=== PATIENT | female | born 2005 ===

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

== ENCOUNTER 2023-05-14 21:44 | Emergency (ER) | payer OTHER, SELFPAY ==
[2023-05-14 21:51] VITALS: BP 103/63; PULSE 72; RESP 18; TEMP 37.3; O2SAT 99; BMI 37.8
[2023-05-14 23:43] VITALS: BP 121/60; PULSE 65; RESP 18; TEMP 36.9; O2SAT 100
--- NOTE | 2023-05-14 23:44 | MHC.EDTECH ---
Hourly rounds and vitals completed, this tech will set-up for an I&D per the request of .
--- NOTE | 2023-05-15 00:05 | ED_ITS ---
HPI - General Adult General Chief complaint: General Medical Stated complaint: Abscess Time Seen by Provider: 05/14/23 23:23 Source: patient and family Mode of arrival: ambulatory Limitations: no limitations History of Present Illness HPI narrative: 17 yo female no sig PMH here with 1 week of R upper axilla abscess no prior hx of MRSA no fevers, vomiting. Thought maybe it was ingrown hair complaint: abscess Onset (ago): week(s) (1) Location: right and upper extremity (axilla) Radiation: non-radiation Severity: moderate Quality: aching Pain Consistency: intermittent Relieving factors: none Exacerbating factors: other (palpation) Associated symptoms: denies other symptoms Treatments prior to arrival: none Related Data Previous Rx's Medication Instructions Recorded amoxicillin 500 mg capsule 500 mg PO BID #20 caps 12/13/22 doxycycline monohydrate 100 mg 100 mg PO BID #13 caps 05/15/23 capsule ondansetron 4 mg disintegrating 4 mg PO Q8H PRN nausea and 05/15/23 tablet vomiting #20 tabs Allergies Allergy/AdvReac Type Severity Reaction Status Date / Time No Known Allergies Allergy Unverified 05/19/20 17:10 Review of Systems Review of Systems: Constitutional : No Fever, No Chills, Cardiovascular : No Chest Pain, No SOB Respiratory : No Dyspnea Gastrointestinal : No abdominal pain Musculoskeletal : No Joint Swelling Skin : No rash, positive abscess Neuro : No Weakness, No Numbness PMFSH Past Medical History Attestation statement: The following information was validated with the patient. Medical History No pertinent past medical history Social History Social History (Updated 05/15/23 @ 00:11 by Natalie Wright DO) Patient Tobacco Use Status: Never used Tobacco Physical Exam ED Vital Signs: Vital Signs - 24 hr 05/14/23 21:51 05/14/23 23:43 Temperature 99.2 F 98.5 F Pulse Rate 72 65 Respiratory Rate 18 18 Blood Pressure 103/63 121/60 Pulse Oximetry 99 100 Oxygen Delivery Method Room Air Room Air BMI result Body Mass Index 37.8 Appearance: Alert. Oriented X3. No acute distress. Eyes: Pupils equal, round and reactive to light. ENT: Pharynx normal. Neck: Normal inspection. Neck supple. CVS: Normal heart rate and rhythm. Pulses normal. Respiratory: No respiratory distress. Breath sounds normal. Abdomen: Soft and nontender. Skin: Skin warm and dry. Normal skin color. Normal skin turgor. Extremities: No lower extremity edema. R axilla golf ball size abscess fluctuant and almost to a point - distal NV intact, no overlying cellulitis Neuro: Oriented X 3. No motor deficit. No sensory deficit. Procedures Abscess I/D Site: upper extremity (axilla) Side (if applicable): right Local Anesthetic: lidocaine 1% Amount of anesthesia used (mL): 2 Technique: incised with blade Amount of fluid expressed (mL): 3 Sent for culture/gram staining?: No Irrigation: Yes Packing used?: iodoform Medical Decision Making Medical Decision Making MDM Narrative: 17 yo female with R axilla abscess no hx of MRSA No systemic symptoms NV intact RUE - at this time will I+D and start on doxycycline patient is not toxic. Differential Diagnosis Differential Diagnoses: The differential diagnosis associated with the presentation includes abscess, cellulitis, MRSA Admission/Observation Consideration of admission/observation: Escalation of care including admiss ion/observation considered not toxic, no sig signs of cellulitis stable for outpatient care Independent Historian Clinical information obtained from an independent historian. History obtained from or confirmed by: Parent Prescription Management I considered prescription management with: Antibiotic Discharge Plan Discharge Clinical Impression: Abscess Patient Disposition: Home, Self-Care Instructions: Abscess (ED), Incision and Drainage (ED) Additional Instructions: okay to shower but no pool/ocean/pond take antibiotic with full meal and glass of water - can cause sun sensitivity and rash/sunburn packing comes out in 2 days - if it falls out on its own that is okay, return for fevers, worsening swelling, pain, vomiting or any other concerns such as redness that extends beyond the redness Prescriptions: New doxycycline monohydrate 100 mg capsule 100 mg PO BID Qty: 13 0RF ondansetron 4 mg tablet,disintegrating 4 mg PO Q8H PRN (Reason: nausea and vomiting) Qty: 20 0RF No Action amoxicillin 500 mg capsule 500 mg PO BID Qty: 20 0RF
[2023-05-15] MEDS: Ondansetron ODT 4 MG TAB.RAPDIS TRANSLINGU (00:27)
[2023-05-15] MEDS: Doxycycline Monohydrate 100 MG CAPSULE PO (00:27)
[2023-05-15] MEDS: Lidocaine HCl 1 % MPF 5 ML VIAL SUBCUT (00:28)
== END 2023-05-15 00:42 | disposition home or self-care (01) ==
PROVIDERS: Emergency Provider Emergency Medicine; PCP Pediatrics
DX: L02.411 Cutaneous abscess of right axilla (principal)
CPT/HCPCS: 10060; 99283; 99284

== ENCOUNTER 2023-06-10 12:45 | Emergency (ER) | payer OTHER, SELFPAY ==
[2023-06-10 13:37] VITALS: BP 119/60; PULSE 60; RESP 16; TEMP 36.4; O2SAT 98; BMI 33.3
--- NOTE | 2023-06-10 13:37 | ED.GENADULT ---
HPI - General Adult General Chief complaint: Skin/Abscess/Foreign Body Stated complaint: Rash Time Seen by Provider: 06/10/23 13:40 Source: patient Mode of arrival: ambulatory Limitations: no limitations History of Present Illness HPI narrative: Patient is a 17 year old assigned female at with no reported medical history presenting to the emergency department today with a rash. Patient states that she woke up this morning with a rash to her abdomen and neck. Patient denies any change in soaps or detergents. Patient denies any dizziness, lightheadedness, abdominal pain, nausea, vomiting, fever, chills, blurry vision, double vision, loss of vision, chest pain, difficulty breathing, shortness of breath, back pain, night sweats, pain with urination, increased urinary frequency, increased urinary urgency, blood in her urine or stool, syncope or a near syncopal episode, recent trauma or falls, bowel incontinence, bladder incontinence, bowel retention, bladder retention, or any other complaints at this time. Onset (ago): hour(s) Severity: mild Severity scale (1-10): 3 Relieving factors: none Exacerbating factors: none Associated symptoms: rash Treatments prior to arrival: none Related Data Previous Rx's Medication Instructions Recorded amoxicillin 500 mg capsule 500 mg PO BID #20 caps 12/13/22 doxycycline monohydrate 100 mg 100 mg PO BID #13 caps 05/15/23 capsule ondansetron 4 mg disintegrating 4 mg PO Q8H PRN nausea and 05/15/23 tablet vomiting #20 tabs prednisone 20 mg tablet 20 mg PO DAILY 7 days #7 tabs 06/10/23 Allergies Allergy/AdvReac Type Severity Reaction Status Date / Time No Known Allergies Allergy Verified 06/10/23 13:37 Review of Systems Constitutional: Constitutional: Reports no additional constitutional complaints, Denies chills, Denies fever(s) and Denies night sweats Eyes: Eyes: Reports no additional eye complaints, Denies blurry vision, Denies change in vision, Denies diplopia, Denies eye discharge, Denies loss of vision and Denies eye pain ENT: Denies dizziness Cardiovascular: Cardiovascular: Reports no additional cardiovascular complaints, Denies chest pain, Denies lightheadedness, Denies Loss of Consciousness and Denies dyspnea Respiratory: Respiratory: Reports no additional respiratory complaints and Denies dyspnea Gastrointestinal: Gastrointestinal: Reports no additional gastrointestinal complaints, Denies abdominal pain, Denies melena, Denies hematochezia, Denies change in bowel habits and Denies change in stool character Genitourinary: Genitourinary: Denies hematuria, Denies urinary frequency, Denies dysuria, Denies urinary incontinence, Denies urinary hesitancy and Denies urinary urgency Musculoskeletal: Musculoskeletal: Reports no additional musculoskeletal complaints, Denies numbness and Denies tingling Integumentary/Breasts: Skin/Breast: Reports rash Neurologic: Denies dizziness, Denies loss of vision, Denies numbness and Denies tingling Psychiatric: Psychiatric: Reports no additional psychiatric complaints Endocrine: Endocrine: Reports no additional endocrine complaints Hematologic/Lymphatic: Hematologic/Lymphatic: Reports no additional hematologic/lymphatic complaints Allergic/Immunologic: Allergic/Immunologic: Reports no additional allergic/immunologic complaints PMFSH Past Medical History Attestation statement: The following information was validated with the patient. Source: old records reviewed and nursing notes reviewed Medical History No pertinent past medical history Social History Social History Patient Tobacco Use Status: Never used Tobacco Advance Directives: No Physical Exam ED Vital Signs: Vital Signs - 24 hr 06/10/23 13:37 Temperature 97.5 F Pulse Rate 60 Respiratory Rate 16 Blood Pressure 119/60 Pulse Oximetry 98 Oxygen Delivery Method Room Air BMI result Body Mass Index 33.3 Const General: cooperative, no acute distress, alert and awake Nutritional Appearance: well nourished Orientation/consciousness: patient oriented x3 Limitations: no limitations [facility] Head: Yes normal to inspection and Yes atraumatic Ears: hearing grossly normal bilaterally and external ears normal General nose exam: Normal external nose present, no nasal discharge noted and no epistaxis Face and sinus: Yes normal facial exam, No abrasion and No laceration Mouth: Normal oral and palatal mucosa present, no drooling and no muffled voice Eyes General: appearance normal, both eyes and all related structures Periorbital: periorbital findings normal Eyelids: Yes eyelids normal Conjunctivae: conjunctivae normal Pupils: Equal, round and reactive pupils present EOM: EOMs intact bilaterally Neck Neck: Yes normal visual inspection, Yes full ROM and Yes no lymphadenopathy Chest Chest palpation & inspection: normal inspection of the chest Resp Effort & Inspection: normal respiratory effort and able to speak in complete sentences GI Inspection: Yes normal to inspection Skin Other: urticaria present to the upper chest and abdomen Neuro General: patient oriented x3 and moves all extremities Cranial nerves: Yes Equal, round and reactive pupils present Cognition (Neuro): normal cognition Motor exam (neuro): 5/5 motor strength present throughout Sensory Exam: Normal double simultaneous stimulation for sensation Coordination: [id number] test normal Extrem General: Yes normal to inspection, Yes full ROM and Yes capillary refill normal Psych Appearance: grossly normal Mental Status: mental status grossly normal Affect: normal affect Attitude: cooperative Thought process: Normal thought process present Thought content: Normal thought content present Insight: Good insight present (Psych) Medical Decision Making Medical Decision Making MDM Narrative: Patient is a 17 year old assigned female at with no reported medical history presenting to the emergency department today with a rash. Patient's physical exam was as noted in the physical exam portion of this note. I explained my physical exam findings to the patient. I answered all questions asked by the patient. I stressed the importance of the patient taking her medication as prescribed. I stressed the importance of the patient following up with her primary care provider. I stressed the importance of the patient returning to the emergency department immediately if her symptoms were to worsen or if she were to develop any dizziness, shortness of breath, difficulty breathing, chest pain, blurry vision, loss of vision, nausea, vomiting, abdominal pain, fever, chills, back pain, or any other complaints. Patient verbalized agreement and understanding with this treatment plan and discharge. Differential Diagnosis Differential Diagnoses: The differential diagnosis associated with the presentation includes Urticaria Rash Discharge Plan Discharge Clinical Impression: Acute urticaria Patient Disposition: Home, Self-Care Instructions: Urticaria (ED) Additional Instructions: Follow up with your primary care provider. Return to the emergency department immediately if your symptoms worsen or if you develop any dizziness, shortness of breath, difficulty breathing, chest pain, blurry vision, loss of vision, nausea, vomiting, abdominal pain, fever, chills, back pain, or any other complaints. Prescriptions: New prednisone 20 mg tablet 20 mg PO DAILY 7 Days Qty: 7 0RF No Action amoxicillin 500 mg capsule 500 mg PO BID Qty: 20 0RF doxycycline monohydrate 100 mg capsule 100 mg PO BID Qty: 13 0RF ondansetron 4 mg tablet,disintegrating 4 mg PO Q8H PRN (Reason: nausea and vomiting) Qty: 20 0RF Referrals: [facility] [Provider Group] (Call to establish and follow up with a primary care provider. If you already have a primary care provider, please follow up with them.) [facility] [Provider Group] (Call to establish and follow up with a primary care provider. If you already have a primary care provider, please follow up with them.) [facility] [Provider Group] (Call to establish and follow up with a primary care provider. If you already have a primary care provider, please follow up with them.) Interventions: ED Discharge Assessment Last Done: 06/10/23 13:49 Discharge Date/Time: 06/10/23 13:49 Print Language: Moldovan
== END 2023-06-10 13:49 | disposition home or self-care (01) ==
PROVIDERS: Emergency Provider Emergency Medicine; PCP Pediatrics
DX: L50.0 Allergic urticaria (principal); Z79.899 Other long term (current) drug therapy
CPT/HCPCS: 99282; 99283

== ENCOUNTER 2023-07-17 09:36 | Emergency (ER) | payer OTHER, SELFPAY ==
--- NOTE | ~2023-07-17 | XR_ITS ---
EXAMINATION: XR WRIST, RIGHT XR HAND, RIGHT CLINICAL INFORMATION: Punched wall COMPARISON: None available. TECHNIQUE: PA, lateral, and bilateral oblique views of the right wrist and hand along with a scaphoid view of the wrist. FINDINGS: RIGHT WRIST: The bones and soft tissues are normal. No fracture. Alignment is anatomic. Joint spaces are maintained. No erosions or soft tissue calcifications. RIGHT HAND: The bones and soft tissues are normal. No fracture. Alignment is anatomic. Joint spaces are maintained. No erosions or soft tissue calcifications. XR/XR hand wrist RT IMPRESSION: Normal right hand and wrist.
[2023-07-17 09:44] VITALS: BP 119/75; PULSE 110; RESP 16; TEMP 36.6; O2SAT 94; BMI 33.3
--- NOTE | 2023-07-17 09:49 | ED.EXTPRO ---
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 Admits to arguing with someone this morning causing her to punch the drywall in her room. She reports pain to 3rd-5th digits on her right hand exacerbated with movement. Denies right wrist, forearm, or elbow pain. Denies taking any medications for pain prior to arrival. Denies any other injury. Endorses marijuana use today. Denies any other illicit drug use or alcohol consumption. Related Data Previous Rx's Medication Instructions Recorded amoxicillin 500 mg capsule 500 mg PO BID #20 caps 12/13/22 doxycycline monohydrate 100 mg 100 mg PO BID #13 caps 05/15/23 capsule ondansetron 4 mg disintegrating 4 mg PO Q8H PRN nausea and 05/15/23 tablet vomiting #20 tabs prednisone 20 mg tablet 20 mg PO DAILY 7 days #7 tabs 06/10/23 Allergies Allergy/AdvReac Type Severity Reaction Status Date / Time No Known Allergies Allergy Verified 06/10/23 13:37 Review of Systems Review of Systems: Constitutional: No fever, chills, fatigue, night sweats, weight changes ENT/Mouth: No ear pain, hearing loss, nasal congestion, sinus pain, rhinorrhea, sore throat Eyes: No eye pain, swelling, redness, vision changes, discharge Cardio: No chest pain, palpitations, MALLOY, orthopnea, peripheral edema Pulm: No SOB, cough, sputum, wheezing, dyspnea, hemoptysis GI: No nausea, vomiting, hematemesis, abdominal pain, diarrhea, constipation, hematochezia, melena : No irregular bleeding, dysuria, frequency, urgency, hesitancy, hematuria, flank pain, urinary flow changes, urinary incontinence or retention MSK: No back pain, neck pain, joint pain, myalgias, +right hand pain Skin: No lesions, rashes Neuro: No weakness, numbness, paresthesias, LOC, dizziness, headache All other systems reviewed and are negative. [facility] Past Medical History Attestation statement: The following information was validated with the patient. Source: old records reviewed and nursing notes reviewed Medical History No pertinent past medical history Social History Social History Patient Tobacco Use Status: Never used Tobacco Advance Directives: No Advance Directives Information Provided: No Physical Exam Vital Signs: Vital Signs: Last Vital Signs Temp 97.8 F 07/17/23 09:44 Pulse 110 H 07/17/23 09:44 Resp 16 07/17/23 09:44 BP 119/75 07/17/23 09:44 Pulse Ox 94 07/17/23 09:44 O2 Del Method Room Air 07/17/23 09:44 BMI result Body Mass Index 33.3 Vital signs stable Const: General: cooperative, healthy appearing, comfortable, no acute distress, alert and awake Orientation/consciousness: patient oriented x3 Limitations: no limitations HEENT: Ears: hearing grossly normal bilaterally Eyes: General: appearance normal, both eyes and all related structures Conjunctivae: conjunctivae normal Sclerae: sclerae normal Pupils: Equal, round and reactive pupils present Resp: Effort & Inspection: normal respiratory effort Auscultation: clear to auscultation bilaterally Cardio: Rate: regular rate Rhythm: regular rhythm Peripheral pulses: radial pulses present Skin: Other: No overlying skin lacerations or abrasions. No FB. General skin exam: no rashes or lesions noted Neuro: General: patient oriented x3, gait normal and moves all extremities Cranial nerves: Yes CN's II-XII intact bilaterally and Yes Equal, round and reactive pupils present Extrem: Other: + full ROM intact to right wrist and elbow. Finger to thumb opposition intact. Full ROM noted to MCP, PIP and DIPs to all digits on the right hand. Tender to palpation over the 3rd, 4th, 5th MCP without palpable deformity. No snuffbox tenderness. 2+ radial pulses. General: Yes normal exam except as noted Course Course Course Narrative: X-ray right hand/wrist without acute fracture or dislocation. Given there is no snuffbox tenderness, I do not suspect scaphoid fracture. This does not require any splinting. I informed patient of her imaging results and advised her to ice the area and rest her hand for the next couple of days. Discussed return precautions. All questions answered at this time. Patient is agreeable disposition and stable for discharge. Medications Administered Discontinued Medications Generic Name Dose Route Start Last Admin Trade Name Merry PRN Reason Stop Dose Admin Acetaminophen 975 mg 07/17/23 09:54 07/17/23 10:04 Acetaminophen 325 Mg Tablet PO 07/17/23 09:55 975 mg ONCE ONE Administration Medical Decision Making Medical Decision Making MDM Narrative: 17-year-old female with no significant past medical history presents to the ED today for evaluation of a right hand pain s/p punching a wall 30 minutes UPS[employer] WELD[employer]PER[employer]. Vital signs initially notable for tachycardia likely secondary to recent argument, now normalized. Vital signs otherwise WNL. On exam there is full ROM intact to right wrist and elbow. Finger to thumb opposition intact. No overlying skin lacerations or abrasions. Full ROM noted to MCP, PIP and DIPs to all digits on the right hand. Tender to palpation over the 3rd, 4th, 5th MCP without palpable deformity. No snuffbox tenderness. 2+ radial pulses. NV intact distally. Clinical concern for fracture, dislocation, MSK sprain/strain. Lower suspicion for scaphoid fracture. No suspicion for compartment syndrome, NV compromise, or threat to limb. Plan at this time is to obtain x-ray of right hand along with pain control. Differential Diagnosis Differential Diagnoses: The differential diagnosis associated with the presentation includes As above. Admission/Observation Not indicated. Independent Interpretation I performed an independent interpretation of an: Plain X-Ray Interpretation: X-ray right hand/wrist without acute fracture or dislocation, agree with radiologist's interpretation. Radiology Impression Discussion of test interpretation with radiology: I have reviewed the radiologist's reading. Radiologist Impression: XR hand wrist RT IMPRESSION: Normal right hand and wrist. Independent Historian Clinical information obtained from an independent historian. History obtained from or confirmed by: Parent (mother) External Record Review External record reviewed: Inpatient record Prescription Management I considered prescription management with: Pain Medication Critical Care Time Critical Care Time Critical Care Time: No Discharge Plan Discharge Clinical Impression: Hand injury Patient Disposition: Home, Self-Care Additional Instructions: The x-ray of your right hand/wrist did not demonstrate acute fracture or dislocation. Please ice your hand over the next couple of days for 20 minutes at a time. He can take Tylenol or ibuprofen at home as needed for pain. Follow-up with your primary care physician as needed. If pain persists or worsen, please return to the emergency department. In the case of an emergency call 911. Prescriptions: No Action amoxicillin 500 mg capsule 500 mg PO BID Qty: 20 0RF doxycycline monohydrate 100 mg capsule 100 mg PO BID Qty: 13 0RF ondansetron 4 mg tablet,disintegrating 4 mg PO Q8H PRN (Reason: nausea and vomiting) Qty: 20 0RF prednisone 20 mg tablet 20 mg PO DAILY 7 Days Qty: 7 0RF Referrals: Physician,Unknown J [Primary Care Provider] - Stand Alone Forms: Work/School Release
[2023-07-17] MEDS: Acetaminophen 325 MG TABLET 975 MG PO (10:04)
[2023-07-17 11:36] VITALS: PULSE 78; O2SAT 100
--- NOTE | 2023-07-17 11:40 | PC.NURSE ---
pt reporting some improvement in pain after tylenol, d/c instructions reviewed w pt.
== END 2023-07-17 11:40 | disposition home or self-care (01) ==
PROVIDERS: Emergency Provider Emergency Medicine Emergency Medical Services
DX: S69.91XA Unspecified injury of right wrist, hand and finger(s), initial encounter (principal); M25.531 Pain in right wrist; X58.XXXA Exposure to other specified factors, initial encounter; Y93.9 Activity, unspecified; Y92.9 Unspecified place or not applicable; Y99.9 Unspecified external cause status
CPT/HCPCS: 73110; 73130; 99283; 99284

== ENCOUNTER 2023-12-06 19:56 | Emergency (ER) | payer OTHER, SELFPAY ==
[2023-12-06 20:28] VITALS: BP 129/96; PULSE 97; RESP 18; TEMP 37; O2SAT 98; BMI 39.0
--- NOTE | 2023-12-06 20:28 | ED_ITS ---
HPI - General Adult General Chief complaint: Skin/Abscess/Foreign Body Stated complaint: stomach abscess, in a lot of pain to where no walk Time Seen by Provider: 12/06/23 20:34 Source: patient Mode of arrival: ambulatory Limitations: no limitations History of Present Illness HPI narrative: Patient is a 18 year old assigned female at with no reported medical history presenting to the emergency department today with an abdominal abscess. Patient states that she has had an open area on her abdomen over the last day that just recently opened. Patient states that it started as a pimple and while bent over on the toilet, it exploded . Patient denies any dizziness, lightheadedness, abdominal pain, nausea, vomiting, fever, chills, blurry vision, double vision, loss of vision, chest pain, difficulty breathing, shortness of breath, back pain, night sweats, pain with urination, increased urinary frequency, increased urinary urgency, blood in her urine or stool, syncope or a near syncopal episode, recent trauma or falls, bowel incontinence, bladder incontinence, bowel retention, bladder retention, or any other complaints at this time. Onset (ago): day(s) Location: abdomen and right Radiation: non-radiation Severity: mild Severity scale (1-10): 3 Relieving factors: none Exacerbating factors: none Associated symptoms: denies other symptoms Treatments prior to arrival: none Related Data Previous Rx's ?Medication ?Instructions ?Recorded amoxicillin 500 mg capsule 500 mg PO BID #20 caps 12/13/22 doxycycline monohydrate 100 mg 100 mg PO BID #13 caps 05/15/23 capsule ondansetron 4 mg disintegrating 4 mg PO Q8H PRN nausea and 05/15/23 tablet vomiting #20 tabs prednisone 20 mg tablet 20 mg PO DAILY 7 days #7 tabs 06/10/23 cephalexin 500 mg capsule 500 mg PO Q6H 7 days #28 caps 12/06/23 doxycycline hyclate 100 mg tablet 100 mg PO BID 7 days #14 tabs 12/06/23 Allergies Allergy/AdvReac Type Severity Reaction Status Date / Time No Known Allergies Allergy Verified 12/06/23 20:33 Review of Systems 2 Constitutional: Constitutional: Reports no additional constitutional complaints, Denies chills, Denies fever(s) and Denies night sweats Eyes: Eyes: Reports no additional eye complaints, Denies blurry vision, Denies change in vision, Denies diplopia, Denies eye discharge, Denies loss of vision and Denies eye pain ENT: Denies dizziness Cardiovascular: Cardiovascular: Reports no additional cardiovascular complaints, Denies chest pain, Denies lightheadedness, Denies Loss of Consciousness and Denies dyspnea Respiratory: Respiratory: Reports no additional respiratory complaints and Denies dyspnea Gastrointestinal: Gastrointestinal: Reports no additional gastrointestinal complaints, Denies abdominal pain, Denies melena, Denies hematochezia, Denies change in bowel habits and Denies change in stool character Comments: open area on abdomen Genitourinary: Genitourinary: Denies hematuria, Denies urinary frequency, Denies dysuria, Denies urinary incontinence, Denies urinary hesitancy and Denies urinary urgency Musculoskeletal: Musculoskeletal: Reports no additional musculoskeletal complaints, Denies numbness and Denies tingling Neurologic: Denies dizziness, Denies loss of vision, Denies numbness and Denies tingling Psychiatric: Psychiatric: Reports no additional psychiatric complaints Endocrine: Endocrine: Reports no additional endocrine complaints Hematologic/Lymphatic: Hematologic/Lymphatic: Reports no additional hematologic/lymphatic complaints Allergic/Immunologic: Allergic/Immunologic: Reports no additional allergic/immunologic complaints PMFSH Past Medical History Attestation statement: The following information was validated with the patient. Source: old records reviewed and nursing notes reviewed Medical History No pertinent past medical history Social History Social History Patient Tobacco Use Status: Never used Tobacco Advance Directives: No Advance Directives Information Provided: No Physical Exam ED Vital Signs: Vital Signs - 24 hr 12/06/23 20:28 Temperature 98.6 F Pulse Rate 97 Respiratory Rate 18 Blood Pressure 129/96 H Pulse Oximetry 98 Oxygen Delivery Method Room Air BMI result Body Mass Index 39.0 Const General: cooperative, no acute distress, alert and awake Nutritional Appearance: well nourished Orientation/consciousness: patient oriented x3 Limitations: no limitations HENMT Head: Yes normal to inspection and Yes atraumatic Ears: hearing grossly normal bilaterally and external ears normal General nose exam: Normal external nose present, no nasal discharge noted and no epistaxis Face and sinus: Yes normal facial exam, No abrasion and No laceration Mouth: Normal oral and palatal mucosa present, no drooling and no muffled voice Eyes General: appearance normal, both eyes and all related structures Periorbital: periorbital findings normal Eyelids: Yes eyelids normal Conjunctivae: conjunctivae normal Pupils: Equal, round and reactive pupils present EOM: EOMs intact bilaterally Neck Neck: Yes normal visual inspection, Yes full ROM and Yes no lymphadenopathy Chest Chest palpation & inspection: normal inspection of the chest Resp Effort & Inspection: normal respiratory effort and able to speak in complete sentences GI Abdomen image: 2 1. small abscess actively draining Neuro General: patient oriented x3 and moves all extremities Cranial nerves: Yes Equal, round and reactive pupils present Cognition (Neuro): normal cognition Motor exam (neuro): 5/5 motor strength present throughout Sensory Exam: Normal double simultaneous stimulation for sensation Coordination: [id number] test normal Extrem General: Yes normal to inspection, Yes full ROM and Yes capillary refill normal Psych Appearance: grossly normal Mental Status: mental status grossly normal Affect: normal affect Attitude: cooperative Thought process: Normal thought process present Thought content: Normal thought content present Insight: Good insight present (Psych) Course Course Course Narrative: Medical Decision Making Medical Decision Making MDM Narrative: Patient is a 18 year old assigned female at with no reported medical history presenting to the emergency department today with an abdominal abscess. Patient's physical exam was as noted in the physical exam portion of this note. I explained my physical exam findings to the patient. I answered all questions asked by the patient. I stressed the importance of the patient taking her medication as prescribed. I stressed the importance of the patient following up with her primary care provider and a general surgeon if her symptoms do not improve. I stressed the importance of the patient returning to the emergency department immediately if her symptoms were to worsen or if she were to develop any dizziness, shortness of breath, difficulty breathing, chest pain, blurry vision, loss of vision, nausea, vomiting, abdominal pain, fever, chills, back pain, or any other complaints. Patient verbalized agreement and understanding with this treatment plan and discharge. Differential Diagnosis Differential Diagnoses: The differential diagnosis associated with the presentation includes Abdominal abscess - actively draining Admission/Observation Consideration of admission/observation: Escalation of care including admission/observation considered Patient would have been admitted to the hospital had her clinical presentation warranted hospital admission. Prescription Management I considered prescription management with: Antibiotic (patient prescribed an antibiotic for an abdominal abscess) Discharge Plan Discharge Clinical Impression: Abscess Patient Disposition: Home, Self-Care Instructions: Abscess (ED) Additional Instructions: Follow up with your primary care provider and a general surgeon. Return to the emergency department immediately if your symptoms worsen or if you develop any dizziness, shortness of breath, difficulty breathing, chest pain, blurry vision, loss of vision, nausea, vomiting, abdominal pain, fever, chills, back pain, or any other complaints. Prescriptions: New cephalexin 500 mg capsule 500 mg PO Q6H 7 Days Qty: 28 0RF doxycycline hyclate 100 mg tablet 100 mg PO BID 7 Days Qty: 14 0RF No Action amoxicillin 500 mg capsule 500 mg PO BID Qty: 20 0RF doxycycline monohydrate 100 mg capsule 100 mg PO BID Qty: 13 0RF ondansetron 4 mg tablet,disintegrating 4 mg PO Q8H PRN (Reason: nausea and vomiting) Qty: 20 0RF prednisone 20 mg tablet 20 mg PO DAILY 7 Days Qty: 7 0RF Referrals: [facility] [place] [facility] [Provider Group] (Call to establish and follow up with a general surgeon. ) [facility] [place] [facility] [place]] (Call to establish and follow up with a primary care provider. If you already have a primary care provider, please follow up with them.) [facility] [place] [facility] [place]] [facility] [place] [facility] [place] Group] Print Language: Icelandic
[2023-12-06 20:38] VITALS: BP 129/96; PULSE 97; RESP 18; TEMP 37; O2SAT 98
== END 2023-12-06 20:38 | disposition home or self-care (01) ==
PROVIDERS: Emergency Provider Student in an Organized Health Care Education/Training Program
DX: L02.211 Cutaneous abscess of abdominal wall (principal)
CPT/HCPCS: 99282; 99283

== ENCOUNTER 2025-03-02 03:40 | Emergency (ER) | payer OTHER, SELFPAY ==
[2025-03-02 03:42] VITALS: BP 150/78; PULSE 77; RESP 16; TEMP 36.8; O2SAT 100; BMI 37.8
[2025-03-02 04:03] LABS: IDNOW Serial# 58CA691E; Strep A Nucleic Acid Negative (Negative)
[2025-03-02 04:32] LABS: Resp Syncy Virus RNA Qual PCR NEGATIVE (Negative); SARS COV2 PCR INHOUSE NEGATIVE (Negative)
--- NOTE | 2025-03-02 05:07 | ED_ITS ---
HPI - General Adult General Chief complaint: General Medical Stated complaint: throat pain Time Seen by Provider: 03/02/25 04:56 Source: patient Mode of arrival: ambulatory Limitations: no limitations History of Present Illness ED Provider: DR. Narayan HPI narrative: 19-year-old female came in for evaluation of 1 week of sore throat. No cough, no fever, no chills, no sick contacts, no recent travel, no difficulty breathing, no voice change, no difficulty swallowing, no sick contacts. Related Data Previous Rx's ?Medication ?Instructions ?Recorded amoxicillin 500 mg capsule 500 mg PO BID #20 caps 12/01 11/22 doxycycline monohydrate 100 mg 100 mg PO BID #13 caps 05/15/23 capsule ondansetron 4 mg disintegrating 4 mg PO Q8H PRN nausea and 05/15/23 tablet vomiting #20 tabs prednisone 20 mg tablet 20 mg PO DAILY 7 days #7 tab s 06/10/23 cephalexin 500 mg capsule 500 mg PO Q6H 7 days #28 cap s 12/06/23 doxycycline hyclate 100 mg tablet 100 mg PO BID 7 days #14 tabs 12/06/23 Allergies Allergy/AdvReac Type Severity Reaction Status Date / Time No Known Allergies Allergy Verified 03/02/25 03:45 Review of Systems Review of Systems: All other systems are reviewed and are negative Constitutional: Reports as per HPI and Reports no additional constitutional complaints Eyes: Reports as per HPI and Reports no additional eye complaints Reports system reviewed and no additional complaints, except as documented Cardiovascular: Reports as per HPI and Reports no additional cardiovascular complaints Respiratory: Reports as per HPI and Reports no additional respiratory complaints Gastrointestinal: Reports as per HPI and Reports no additional gastrointestinal complaints Genitourinary: Reports no additional female genitourinary complaints Musculoskeletal: Reports no additional musculoskeletal complaints Skin/Breast: Reports system reviewed and no additional complaints, except as docu Psychiatric: Reports no additional psychiatric complaints Endocrine: Reports no additional endocrine complaints Hematologic/Lymphatic: Reports no additional hematologic/lymphatic complaints Allergic/Immunologic: Reports no additional allergic/immunologic complaints Reports system reviewed and no additional complaints, except as documented and Reports Abnormal speech present REPLACED BY [facility] Past Medical History Medical History No pertinent past medical history Social History Social History Patient Tobacco Use Status: Never used Tobacco Do you have a plan to hurt others: No Plan Physical Exam ED Vital Signs: Vital Signs - 24 hr 03/02/25 03:42 Temperature 98.2 F Pulse Rate 77 Respiratory Rate 16 Blood Pressure 150/78 H Pulse Oximetry 100 Oxygen Delivery Method Room Air BMI result Body Mass Index 37.8 Vital signs have been reviewed and appear to be correct. Blood pressure elevat ed. Heart rate normal. Respiratory rate normal. Temperature normal. Oxygen saturation normal. Appearance: Alert. Oriented X3. No acute distress. Head: Normal external exam. Normocephalic. Atraumatic. No Cruz signs noted. No raccoon eyes noted Eyes: PERRLA. EOMI. Conjunctiva and sclera normal. Eyelids normal. ENT: TM's Normal. Pharynx normal. Uvula midline. Moist mucous membranes. No trismus noted. No drooling noted. No muffled voice noted. 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 Neck: Normal inspection. Neck supple. FROM. No adenopathy. Thyroid Normal. No me ningeal signs. No neck mass noted. CVS: Normal heart rate and rhythm. Heart sound normal. No murmurs noted. Pulses normal throughout. Respiratory: No respiratory distress. Painless inspiration. Breath sounds normal. No wheezes/rales/rhonchi noted. Chest nontender. No accessory muscle usage noted or decreased air movement noted. Abdomen: Soft and nontender. Bowel sounds normal in all 4 quadrants. No distention noted. No organomegaly noted. No visible injury noted. Back: No CVA tenderness. Full range of motion noted. Skin: Skin warm and dry. Normal skin color. Normal skin turgor. No ra shes/lesions/lacerations noted. Extremities: No lower extremity edema. Extremities exhibit normal range of motion. Extremities nontender. Neuro: Oriented X 3. Cranial nerve exam: II-XII are grossly intact No motor deficit. No sensory deficit. Reflexes normal. Course Reevaluation(s) Reevaluation #1: Likely viral pharyngitis, patient was given 1 dose of prednisone and 1 dose of ibuprofen in the ED and reported improvement of her symptoms. Will discharge follow-up with PCP. Time: 06:00 Medical Decision Making Differential Diagnosis Differential Diagnoses: The differential diagnosis associated with the presentation includes (Strep pharyngitis, upper airway compromise, viral pharyngitis.) Admission/Observation Consideration of admission/observation: Escalation of care including admission/observation considered Lab Data Labs: Lab Results 03/02/25 Range/Units 03:49 Influenza Type A (PCR) NEGATIVE (Negative) Influenza Type B (PCR) NEGATIVE (Negative) RSV RNA Qual (PCR) NEGATIVE (Negative) SARS-CoV-2 RNA (RT-PCR) NEGATIVE (Negative) S. pyogenes GrpA MANJULA Negative (Negative) Discharge Plan Discharge Clinical Impression: Pharyngitis Patient Disposition: Home, Self-Care Instructions: Pharyngitis (ED) Prescriptions: No Action amoxicillin 500 mg capsule 500 mg PO BID Qty: 20 0RF doxycycline monohydrate 100 mg capsule 100 mg PO BID Qty: 13 0RF ondansetron 4 mg tablet,disintegrating 4 mg PO Q8H PRN (Reason: nausea and vomiting) Qty: 20 0RF prednisone 20 mg tablet 20 mg PO DAILY 7 Days Qty: 7 0RF cephalexin 500 mg capsule 500 mg PO Q6H 7 Days Qty: 28 0RF doxycycline hyclate 100 mg tablet 100 mg PO BID 7 Days Qty: 14 0RF Print Language: Kinyarwanda
[2025-03-02 05:08] VITALS: BP 98/57; PULSE 60; RESP 18; TEMP 36.6; O2SAT 98
[2025-03-02 05:28] VITALS: BP 98/57; PULSE 60; RESP 18; TEMP 36.6; O2SAT 98
== END 2025-03-02 05:30 | disposition home or self-care (01) ==
LOC: HO.ED 05:27
PROVIDERS: Emergency Provider Emergency Medicine
DX: J02.9 Acute pharyngitis, unspecified (principal); Z03.818 Encounter for observation for suspected exposure to other biological agents ruled out
CPT/HCPCS: 87637; 87651; 99283; 99284

== ENCOUNTER 2025-06-06 13:39 | Emergency (ER) | payer OTHER, SELFPAY ==
[2025-06-06 14:00] VITALS: BP 126/63; PULSE 72; RESP 18; TEMP 36.6; O2SAT 98; BMI 37.5
--- NOTE | 2025-06-06 14:10 | ED_ITS ---
HPI - General Adult General Chief complaint: Skin/Abscess/Foreign Body Stated complaint: Rash on left arm Time Seen by Provider: 06/06/25 14:08 Source: patient Mode of arrival: ambulatory History of Present Illness ED Provider: Alexi Senior HPI narrative: 19-year-old female healthy presents to the ED for burning painful rash left upper extremity. Patient states she had a small bump on her finger down was burning and then spread up her left arm. Patient denies any itching, fever, chills or recent trauma. Patient states having small burning bumps on left upper extremity. Related Data Previous Rx's ?Medication ?Instructions ?Recorded amoxicillin 500 mg capsule 500 mg PO BID #20 caps 12/01 11/22 doxycycline monohydrate 100 mg 100 mg PO BID #13 caps 05/15/23 capsule ondansetron 4 mg disintegrating 4 mg PO Q8H PRN nausea and 05/15/23 tablet vomiting #20 tabs prednisone 20 mg tablet 20 mg PO DAILY 7 days #7 tab s 06/10/23 cephalexin 500 mg capsule 500 mg PO Q6H 7 days #28 cap s 12/06/23 doxycycline hyclate 100 mg tablet 100 mg PO BID 7 days #14 tabs 12/06/23 naproxen 500 mg tablet 500 mg PO BID PRN pain #14 t abs 06/06/25 valacyclovir 1 gram tablet 1,000 mg PO TID 7 days #21 tabs 06/06/25 Allergies Allergy/AdvReac Type Severity Reaction Status Date / Time No Known Allergies Allergy Verified 06/06/25 14:03 Review of Systems 2 Review of Systems: burning rash on left upper extremity Yes all other systems are reviewed and are negative PMFSH Past Medical History Medical History No pertinent past medical history Social History Social History Patient Tobacco Use Status: Never used Tobacco Substance Use Type: Marijuana Advance Directives: No Advance Directives Information Provided: Yes Do you have a plan to hurt others: No Plan Physical Exam ED Vital Signs: Vital Signs - 24 hr 06/06/25 14:00 06/06/25 14:45 Temperature 97.8 F 97.8 F Pulse Rate 72 72 Respiratory Rate 18 18 Blood Pressure 126/63 126/63 Pulse Oximetry 98 98 Oxygen Delivery Method Room Air Room Air BMI result Body Mass Index 37.5 Const General: cooperative, healthy appearing, comfortable, no acute distress, well developed, alert, awake and Physically active Orientation/consciousness: patient oriented x3 [facility] Head: Yes normal to inspection, Yes No palpable skull fracture present, Yes normocephalic and Yes atraumatic Eyes General: appearance normal, both eyes and all related structures Neck Neck: Yes normal visual inspection, Yes full ROM, Yes no lymphadenopathy, Yes no meningeal signs, Yes trachea midline, Yes supple, No anterior neck swelling and No tender Chest Chest palpation & inspection: normal inspection of the chest and normal palpation of entire chest wall Resp Effort & Inspection: normal respiratory effort and able to speak in complete sentences Auscultation: clear to auscultation bilaterally Cardio Jugular venous distension: no JVD Heart sounds: S1 normal heart sound present and S2 normal heart sound present GI Inspection: Yes normal to inspection Palpation (GI): Soft to palpation, not firm, nontender, no guarding and not rigid General: Yes no CVA tenderness Back/Spine/Pelvis Back: no CVA tenderness and No back tenderness Skin Other: Neuro General: patient oriented x3, gait normal, tone normal, moves all extremities, Normal light touch and pain sensation, no meningeal signs, no focal motor deficits, CN's II-XI intact bilaterally and normal sensation to monofilament Extrem General: Yes normal to inspection, Yes full ROM and Yes capillary refill normal Psych Appearance: grossly normal, well kempt and not disheveled Medical Decision Making Medical Decision Making MDM Narrative: RME: 19-year-old female presents to the ED for presents to the painful lesions on left upper extremity started in the hand palms going on left arm. Patient denies being bitten. Patient states rash is burning and painful. Patient denies any itchiness, peeling skin, visual changes, eye pain, facial rash, or ear pain. Physical exam does not indicate cellulitis, osteomyelitis, lymphangitis, dermatitis, arterial occlu vasculitis, Jan Aguilar syndrome, or any other life-threatening etiology. Patient explained worrisome signs and informed to follow up with Dermatology, PCP, or return to the ED immediately Differential Diagnosis Differential Diagnoses: The differential diagnosis associated with the presentation includes (Poison justyna, shingles, cellulitis lymphangitis) Admission/Observation Consideration of admission/observation: Escalation of care including admission/observation considered Prescription Management I considered prescription management with: Other (Antiviral) Discharge Plan Discharge Clinical Impression: Herpetic stefano, Zoster Patient Disposition: Home, Self-Care Instructions: Shingles (ED) Additional Instructions: You will be discharged with antiviral medication. recommend follow up with primary care provider and car dumper operator. Return to the ED for worsening rash, peeling of skin, fever, chills, red streaks, chest pain, shortness of breath, bluish black discoloration, or any other concerning symptoms. [facility] [address] [place] [address] . [email or web address] you can make appointment online. Prescriptions: New valacyclovir 1 gram tablet 1,000 mg PO TID 7 Days Qty: 21 0RF naproxen 500 mg tablet 500 mg PO BID PRN (Reason: pain) Qty: 14 0RF No Action amoxicillin 500 mg capsule 500 mg PO BID Qty: 20 0RF doxycycline monohydrate 100 mg capsule 100 mg PO BID Qty: 13 0RF ondansetron 4 mg tablet,disintegrating 4 mg PO Q8H PRN (Reason: nausea and vomiting) Qty: 20 0RF prednisone 20 mg tablet 20 mg PO DAILY 7 Days Qty: 7 0RF cephalexin 500 mg capsule 500 mg PO Q6H 7 Days Qty: 28 0RF doxycycline hyclate 100 mg tablet 100 mg PO BID 7 Days Qty: 14 0RF Referrals: [facility] [place] [facility] [Provider Group, Internal Medicine] - 2 days Referral Note: Left extremity shingles versus herpetic stefano Clinical Impression: Herpetic stefano; Zoster [facility] [Provider Group, Internal Medicine] - 2 days Referral Note: Left upper extremity herpetic stefano versus shingles Clinical Impression: Herpetic stefano; Zoster Stand Alone Forms: Work/School Release Interventions: ED Discharge Assessment Last Done: 06/06/25 14:45 Discharge Date/Time: 06/06/25 14:46 Print Language: Tajik
--- OUTSIDE RECORDS SUMMARY | 2025-06-06 14:13 | XMS_ITS | Encounter Summary ---
Author Organization [facility] Address [address] [place], [place] [address] Phone Care Team Providers Care City Jailer Name Role Phone Ashli Shen MD Primary Care Provider [phone] Encounter Details Date Type Department Care Team (Late st Contact Info) Description 10/03/2016 Documentation [facility] [place] [address] [place] [address] Family Medicine, Physician [address], [place] [id number] Social History Tobacco Use Types Packs/Day Years Used Date Smoking Tobacco: Never Assessed Comments Unknown Sex and Gender Information Value Date Recorded Sex Assigned at Female 01/23/2021 10:38 AM EDT Legal Sex Female 5:13 PM EDT Gender Identity Female 01/23/2021 10:38 AM EDT Sexual Orientation Straight 01/23/2021 10 :38 AM EDT documented as of this encounter Plan of Treatment Not on file documented as of this encounter Visit Diagnoses Not on filedocumented in this encounter Care Teams City Jailer Relationship Specialty Start Date End Date Ashli Shen MD [address] [place] [id number] PCP - General Pediatrics 05/04/22 11/12/24 documented as of this encounter
--- OUTSIDE RECORDS SUMMARY | 2025-06-06 14:13 | XMS_ITS | Clinical Summary ---
Author Organization [facility] Address [address] [place] [address] Phone Care Team Providers Care Crop Nutrition Scientist Name Role Phone Unavailable Primary Care Provider Unavailabl e Allergies No known active allergies Medications ibuprofen 600 MG tablet Take 600 mg by mouth every 8 (eight) hours as needed. for pain 0 8 Active Pseudoephedrine-A PAP-DM (RA ACETAMINOPHEN FLU COLD PO) Take by mouth. Activ e polyethylene glycol (MiraLax) 17 GM/SCOOP powderIndications :Lower abdominal pain,Constipation , unspecified constipation type Take 17 g by mouth 3 (three) times a day. Stir and dissolve powder into 4 to 8 ounces of beverage and then drink. 850 g 3 2 Active Additional Information Patient not taking.Reported on 12/19/2023 Active Problems Problem Noted Date Diagnosed Date Vitamin D insufficiency 05/05/2022 Overview (05/07/2022): 05/05/2022: 25 [place] vit D = 05/03/22 on 16.1. Vitamin D 2000IU/day prescribed, to recheck level in 2 months. Assessment & Plan (05/05/2022 10:48 AM EDT): Vitamin D 2000IU/day prescribed, to recheck level in 2 months (can be done at well visit 07/11/22)- will let PCP know. Elevated transaminase level 05/05/2022 Overview (05/07/2022): 05/05/2022: Noted 05/03/22 and mild- either from PID (luann-gisella helena syndrome) versus NAFLD. Rcheck at next well visit Assessment & Plan (05/05/2022 10:48 AM EDT): Either from PID (luann-gisella helena syndrome) versus NAFLD. Consider re-checking levels at well visit in 2 months when PID should have cleared. Overweight, pediatric, BMI (body mass index) 95- 99% for age 0804/07/2015 Overview (07/08/2022): 07/08/2022 (age 16yr): Lipids, HgbA1C normal 05/2022. Conduct disorder 10/23/2011 Overview (11/15/2017): Evaluated by MCPAP 2009 and dx with suspected anxiety at that time, sees a therapist and doing well, continue to monitor and refer to psychiatrist for med management if needed Assessment & Plan (11/15/2017 11:35 AM EDT): Not in therapy currently, no issues reported. Reassuring teacher Heidi. We write meds for ADHD only. Assessment & Plan (06/29/2017 8:58 PM EDT): Doing well in therapy with Parth Schneider - continue in therapy and follow up here as needed before next PE. ADHD 08/25/2009 Overview (07/08/2022): 07/08/2022 Chart Review: has been on Ritalin LA 40 mg in the past. Last Rx was 09/17/2021. Detailed History and Chronology of care: Initial Dx 08/25/2009 - Should not be on Adderall again d/t emotional changes on this med. Pt is followed by therapist re: this and we Rx for ADHD meds 11/15/2017: On Ritalin LA 40mg. Med Rx is current - will need refilled in about 10 days, so too soon to do this today. Not in therapy, consider in the future if needed. 06/2019: Pt has previously been on Ritalin LA 40mg for several years and did well, was previously in therapy, not currently in therapy Assessment & Plan (11/15/2017 11:19 AM EDT): On Ritalin LA 40mg. Med Rx is current - will need refilled in about 10 days, so too soon to do this today. Not in therapy, consider in the future if needed. Assessment & Plan (06/29/2017 8:59 PM EDT): Continue on current Ritalin LA 40mg dosing - [place] from mom reviewed today - stressed that she needs to have the teachers return their forms before I will do any additional refills as they were to be here for review today. Otherwise appears to be doing well - follow up at 10/2017, sooner with any concerns. ASE reviewed, sleep, appetite, therapy, healthy choices encouraged. Will call for next refill - currently UTD. Immunizations Immunization Administration Dates Next Due COVID-19 Pfizer, bivalent, 12+ years 02/28/2023 DTaP 5 10/28/2007, 5,04/12/2004,02/09,2003 HPV Vaccine 9 Valent 06/04/2016,10/27/2015 HPV, Quadrivalent 02/08/2015 Hep A, ped/adol 10/14/2014,02/18/2014 Hep B, ped/adol 07/13/2004,04/12/2004,2003 Hib (HbOC) 01/11/2005,04/12/2004,02/10/2004 Hib (PRP-T) 2003 IPV 10/28/2007, 4,02/10/2004,12/08 Influenza Split 06/02/2012 Influenza, injectable, quadrivalent 06/04/2016,1 ,07/08/2014 Influenza, injectable, quadr ivalent, preservative free 06/07/2023,08/22/2020,06/26/2019,07/12,05/03/2016,06/16/2013 Influenza, injectable, trivalent 08/01/2006,07/03 MMR 10/12/2004 MMRV 10/28/2007 Meningococcal Conj (Menactra) MCV4P 01/17/2021,0 02/08/2015 Pneumococcal Conjugate 01/11/2005,2003,02/10/2004,12/08 Tdap 02/08/2015 Varicella 10/12/2004 Family History Medical History Relation Name Comments ADD / ADHD Brother No Known Problems Father No Known Problems Half-Brother No Known Problems Half-Sister Migraines Mother Relation Name Status Comments Brother Alive Brother: ADD/AD HD Father Alive Father: Alive a nd well Half-Brother Alive Half brother (P ): Alive and well Half-Sister Alive Half sister (P) : Alive and well Mother Alive Mother: Migrain es Other Family history of Diabetes mellitus, Family history of Elevated cholesterol, Family history of ADD/ADHD Social History Tobacco Use Types Packs/Day Years Used Date Smoking Tobacco: Never Smokeless Tobacco: Never Comments:Never smoker Hunger/Food Answer Date Recorded In the last 12 months, did y ou or your family ever eat less than you felt you should because there wasn't enough money for food? No 01/17/2021 Stable Housing Answer Date Recorded Are you worried that in the next 2 months you may not have stable housing? No 01/17/2021 Transportation Concerns Answer Date Rec orded In the last 12 months, have you or your family ever had to go without healthcare because you didn't have a way to get there? No 01/17/2021 Hazards in Home Answer Date Recorded Think about the place you li ve. Do you have problems with any of the following? Pests (mice or roaches), mold, no/not working smoke detectors, water leaks, no window guards. No 2020 Financing Utilities Answer Date Recorde d In the last 12 months, has t he electric, gas, oil, or water company threatened to shut off your services in your home? No 01/17/2021 Safety at Home Answer Date Recorded Are you or your family worried about feeling saf e in your home? No 01/17/2021 Outside Support Answer Date Recorded Do you feel that you need mo re support from other people or programs to help you care for yourself or your family? No 01/17/2021 Understanding Health Concerns Answer Da te Recorded Do you need help understandi ng your or your child's healthcare needs (diagnosis, medications, plan, etc.)? No 01/17/2021 Financing Health Concerns Answer Date R ecorded In the last 12 months, was t here a time when your child needed to see a doctor or get medications or supplies but could not because of cost? No 01/17/2021 Missing School or Work Answer Date Dl rded Did you or your child miss s chool or work because of a health problem that could have been avoided? No 01/17/2021 Comments No Sex and Gender Information Value Date Recorded Sex Assigned at Female 01/23/2021 10:38 AM EDT Legal Sex Female 5:13 PM EDT Gender Identity Female 01/23/2021 10:38 AM EDT Sexual Orientation Straight 01/23/2021 10 :38 AM EDT Last Filed Vital Signs Vital Sign Reading Time Taken Comments Blood Pressure 100/68 12/19/2023 2:10 PM EDT Pulse 66 12/19/2023 2:10 PM EDT Temperature 36.2 C (97.1 F) 12/19/2023 2:10 PM EDT Respiratory Rate - - Oxygen Saturation - - Inhaled Oxygen Concentration - - Weight 103 kg (228 lb) 12/19/2023 2:10 PM EDT Height 163.8 cm (5' 4.5 ) 08/07/2021 2:56 PM EST Body Mass Index - - Plan of Treatment Health Maintenance Due Date Last Done Comments Men B Vaccine (1 of 2 - Standard) 2019 DTaP,Tdap,and Td Vaccines (7 - Td or Tdap) 02/08/2025 02/08/2015, 10/28/2007, 05/04/2005, Additional history exists Influenza Vaccines (#1) 2025 06/07/20, 08/22/2020, 06/26/2019, Additional history exists COVID-19 Vaccine (3 - 2024-2 6 season) 2025 08/17/2023, 02/28/2023 Hepatitis B Vaccines Completed 07/13/2004, 04/12/2004, 2003 HIB Vaccines Completed 01/11/2005, 04/02, 02/10/2004, Additional history exists Pneumococcal Vaccine Completed 01/11/2005, 04/12/2004, 02/10/2004, Additional history exists IPV Vaccines Completed 10/28/2007, 07/03, 02/10/2004, Additional history exists MMR Vaccines Completed 10/28/2007, 10/12/2004 Varicella Vaccines Completed 10/28/2007, 10/12/2004 Hepatitis A Vaccines Completed 10/14/2014, 02/19/20 14 HPV Vaccines Completed 06/04/2016, 10/04, 02/08/2015 Meningococcal Vaccine Completed 01/17/2021, 015 Procedures * Due to [facility] law, this organization might not be sharing sensitive test results. Procedure Name Priority Date/Time Associated Diagnosis Comments CHLAMYDIA AND GONORRHEA, AMPLIFIED Routine 05/03/2022 5:02 PM EDT Encounter for screening examination for chlamydial infection from Last 3 Months or Most Recently Relevant to Health Maintenance Results * Due to [place] [employer] law, this organization might not be sharing sensitive test results. * (ABNORMAL) Chlamydia and Gonorrhea, Amplified (05/03/2022 5:02 PM EDT) Chlamydia Trachomatis, DNA Probe NEGATIVE (NEG) [facility] Comment: No Chlamydia Trachomatis RNA detected in this patient's sample (REFERENCE RANGE/NORMAL VALUE: NOT DETECTED) Note: This test uses animal shelter manager- mediated amplification method to detect rRNA from C. Trachomatis URINE GC AMP PROBE POSITIVE(A) (NEG) [facility] Comment: Neisseria Gonorrhoeae RNA detected in this patient's sample (REFERENCE RANGE/NORMAL VALUE: NOT DETECTED) Result reported to the [facility]. NOTE: This test uses animal shelter manager-mediated amplification method to detect rRNA from N.Gonorrhoeae. A negative result does not preclude infection. In the case of a negative urine result, testing of an endocervical(female) or urethral (male) specimen is recommended if there is high clinical suspicion of infection. Due to very high sensitivity of Nucleic Acid Amplification Test, false positive results may occur. Therefore, specimen handling is extremely important. In patients in whom the disease is unlikely, additional sample for testing should be considered after an initial positive result. The performance characteristics of this test have not been evaluated in children. The Aptima Combo2 assay is not intended for the evaluation of suspected sexual abuse or for other medico-legal indications. The ordering provider should assess if the patient had consensual sex without risk of sexual abuse. Consult the [facility] if needed. Contact phone number . Therapeutic failure or success cannot be determined with the Aptima Combo2 assay since nucleic acid may persist following appropriate antimicrobial therapy. The Centers for Disease Control and Prevention (CDC) recommends confirmatory retesting using culture or a different nucleic acid amplification test when positive results occur, if indicated. Testing performed or reported by [facility], a Service of [facility], [facility] [place] [address] Wilner Sandhu MD, Sanitary Engineering Teacher [facility]# [id number] Urine (Urine) 05/03/2022 5:0 2 PM EDT 05/04/2022 1:50 AM EDT us Lila Costa MD LAB MICROBIOLOGY - GENERAL OR DERABLES Final Result [facility] from Last 3 Months or Most Recently Relevant to Health Maintenance
--- OUTSIDE RECORDS SUMMARY | 2025-06-06 14:13 | XMS_ITS | Encounter Summary ---
Author Organization [facility] Address [address] [place], [place] [address] Phone Care Team Providers Care Electro Optics Engineer Name Role Phone Ashli Shen MD Primary Care Provider [phone] Encounter Details Date Type Department Care Team (Late st Contact Info) Description 10/15/2016 Documentation [facility] [place] Family Medicine [address] [place], [place] [id number] Family Medicine, Physician [address], [place] [phone] Social History Tobacco Use Types Packs/Day Years [...] on filedocumented in this encounter Care Teams Electro Optics Engineer Relationship Specialty Start Date End Date Ashli Shen MD [address] [place] [id number] PCP - General Pediatrics 05/04/22 11/12/24 documented as of this encounter
--- OUTSIDE RECORDS SUMMARY | 2025-06-06 14:13 | XMS_ITS | Encounter Summary ---
Author Organization [facility] Address [address] [place] [address] Phone Care Team Providers Care Manager Product Management Name Role Phone Ashli Shen MD Primary Care Provider [phone] Encounter Details Date Type Department Care Team (Late st Contact Info) Description 04/18/2017 Conversion Encounter [facility] [address] [place] [address] Social History Tobacco Use Types Packs/Day Years Used Date Smoking Tobacco: Never Comments:Never smoker Comments Unknown Sex and Gender Information Value [...] on filedocumented in this encounter Care Teams Manager Product Management Relationship Specialty Start Date End Date Ashli Shen MD [address] [place] [address] PCP - General Pediatrics 05/04/22 11/12/24 documented as of this encounter
--- OUTSIDE RECORDS SUMMARY | 2025-06-06 14:13 | XMS_ITS | Encounter Summary ---
Author Organization [facility] Address [address] [place], [place] [phone] Phone Care Team Providers Care Histopath Tech Name Role Phone Ashli Shen MD Primary Care Provider [phone] Encounter Details Date Type Department Care Team (Late st Contact Info) Description 11/07/2009 Documentation [facility] [place] [address] [place], [place] [phone] Family Medicine, Physician [address], [place] [phone] Social History Tobacco Use Types Packs/Day Years [...] on filedocumented in this encounter Care Teams Histopath Tech Relationship Specialty Start Date End Date Ashli Shen MD [address] [place] [address] PCP - General Pediatrics 05/04/22 11/12/24 documented as of this encounter
--- OUTSIDE RECORDS SUMMARY | 2025-06-06 14:13 | XMS_ITS | Encounter Summary ---
Author Organization [facility] Address [address] [place], [place] [address] Phone Care Team Providers Care Tooth Cutter Name Role Phone Ashli Shen MD Primary Care Provider [phone] Encounter Details Date Type Department Care Team (Late st Contact Info) Description 12/17/2016 [place]ation [facility] [place] [address] [place] [address] Family Medicine, Physician [address] [place], [place] [address] Social History Tobacco Use Types Packs/Day Years [...] on filedocumented in this encounter Care Teams Tooth Cutter Relationship Specialty Start Date End Date Ashli Shen MD [address] [place] [address] PCP - General Pediatrics 05/04/22 11/12/24 documented as of this encounter
--- OUTSIDE RECORDS SUMMARY | 2025-06-06 14:13 | XMS_ITS | Encounter Summary ---
Author Organization [facility] Address [address] [place], [place] [address] Phone Care Team Providers Care Construction Worker Name Role Phone Ashli Shen MD Primary Care Provider [phone] Encounter Details Date Type Department Care Team (Late st Contact Info) Description 07/31/2010 Documentation [facility] [place] [address] [place], [place] [phone] Family Medicine, Physician [address], [place] [phone] Social History Tobacco Use Types Packs/Day Years [...] on filedocumented in this encounter Care Teams Construction Worker Relationship Specialty Start Date End Date Ashli Shen MD [address] [place] [address] PCP - General Pediatrics 05/04/22 11/12/24 documented as of this encounter
--- OUTSIDE RECORDS SUMMARY | 2025-06-06 14:13 | XMS_ITS | Encounter Summary ---
Author Organization [facility] Address [address] [place], [place] [address] Phone Care Team Providers Care Delicatessen Goods Stock Clerk Name Role Phone Ashli Shen MD Primary Care Provider [phone] Encounter Details Date Type Department Care Team (Late st Contact Info) Description 04/03/2011 Documentation [facility] Family Medicine [address] [place], [place] [phone] Family Medicine, Physician [address], [place] [phone] Social History Tobacco Use Types Packs/Day Years [...] on filedocumented in this encounter Care Teams Delicatessen Goods Stock Clerk Relationship Specialty Start Date End Date Ashli Shen MD [address] [place] [phone] PCP - General Pediatrics 05/04/22 11/12/24 documented as of this encounter
--- OUTSIDE RECORDS SUMMARY | 2025-06-06 14:13 | XMS_ITS | Clinical Summary ---
Author Organization [facility] Address [address] [facility] [address] [place] [address] Phone Care Team Providers Care Adoption Agent Name Role Phone Pcp, Unknown Primary Care Provider Unavailabl e Encounters Date Type Department Care Team Description 04/29/2025 1:27 PM EDT - 04/29/2025 11:59 PM EDT Hospital Encounter [facility] [address] [place] [address] Umberto Hamm MD, MPH Discharge Disposition: Home or Self Care 04/28/2025 3:30 PM EDT - 04/28/2025 11:59 PM EDT Hospital Encounter [facility] [address] [place] [address] Umberto Hamm MD, MPH Discharge Disposition: Home or Self Care 04/28/2025 Transcribe Orders [facility] [address] [place] [address] Umberto Hamm MD, MPH Encounter for occupational health assessment (Primary Dx) 04/20/2025 Orders Only [facility] [address] [place] [address] Priyanka Farrar CNP Encounter for occupational health assessment (Primary Dx) from Last 3 Months Immunizations Immunization Administration Dates Next Due Hepatitis B Adult 05/07/2025 MMR 05/07/2025 Tdap 02/08/2015 Social History Tobacco Use Types Packs/Day Years Used Date Smoking Tobacco: Never Assessed Education Answer Date Recorded Are you interested in more education? Not on alyssa e 04/20/2025 Are you concerned about learning? Not on file 04/20/2025 No 04/20/2025 No 04/20/2025 Digital Access Answer Date Recorded No 04/20/2025 No 04/20/2025 Reliable internet access at home? Not on file 04/20/2025 Device with a working camera? Not on file Comments Unknown Sex and Gender Information Value Date Recorded Sex Assigned at Not on file Legal Sex Female 6:06 PM EDT Gender Identity Not on file Sexual Orientation Not on file Plan of Treatment Health Maintenance Due Date Last Done Comments COMBINED DTaP,Tdap,Td (2 - T d or Tdap) 03/08/2015 02/08/2015 DEPRESSION SCREENING 2015 SMOKING Hx and SMOKELESS TOB ACCO SCREENING 2016 HPV VACCINES (1 - 3-dose series) 2018 CHLAMYDIA SCREENING 2019 MENINGOCOCCAL VACCINES (B) ( 1 of 2 - Standard) 2019 ADOLESCENT UNIVERSAL LIPID SCREENING 2020 HEPATITIS C SCREENING 2021 HIV ONE-TIME SCREENING (18-6 5 YEARS) 2021 PAP SMEAR 2024 Adult Td,Tdap Booster 02/08/2025 02/08/2015 INFLUENZA VACCINE (#1) 2025 COVID-19 VACCINE ( - 2023-2 5 season) 2025 MMR VACCINES Completed 05/07/2025 HEPATITIS A VACCINES Aged Out No long er eligible based on patient's age to complete this topic HIB VACCINES Aged Out No longer eligi ble based on patient's age to complete this topic MENINGOCOCCAL VACCINES (ACWY) Aged Out No longer eligible based on patient's age to complete this topic PNEUMOCOCCAL VACCINES (0-49 years) Aged Out No longer eligible based on patient's age to complete this topic Medical Devices Not on file Procedures Procedure Name Priority Date/Time Associated Diagnosis Comments HC TB CELL MEDIATED ANTIGN RESPNSE GAMMA INTERFERON Routine 04/29/2025 1:36 PM EDT Encounter for occupational health assessment MEASLES ANTIBODY, IGG Routine 04/29/2025 1:36 PM EDT Encounter for occupational health assessment VARICELLA-ZOSTER (VZV) ANTIBODY, IGG Routine 04/29/2025 1:36 PM EDT Encounter for occupational health assessment RUBELLA ANTIBODY, IGG Routine 04/29/2025 1:36 PM EDT Encounter for occupational health assessment MUMPS ANTIBODY, IGG Routine 04/29/2025 1 :36 PM EDT Encounter for occupational health assessment from Last 3 Months Results * Quantiferon-TB Gold (04/29/2025 1:36 PM EDT) QuantiFERON-TB Gold Negative Negative [facility] Comment: (NOTE) No interferon-gamma response to M. tuberculosis antigens was detected. Latent infection with M. tuberculosis is unlikely. A single negative result does not exclude infection with M. tuberculosis. In patients at high risk for M.tuberculosis infection, a second test should be considered in accordance with the 2017 ATS/IDSA/CDC Clinical Practice Guidelines for Diagnosis of Tuberculosis in Adults and Children [Lewinsohn DM et. al. Clin. Infect. Dis. 2017;64(2):111-115]. The reference range for the 'TB1 Ag minus Nil Result' and 'TB2 Ag minus Nil Result' is an Interferon-gamma level <0.35 IU/mL. TB1 Ag minus Nil 0.00 IU/mL [facility] TB2 Ag minus Nil 0.00 IU/mL [facility] Mitogen minus Nil 9.99 IU/mL [facility] Nil Result 0.01 IU/mL [facility] Blood 04/29/2025 1:36 PM EDT 04/29/2025 1:44 PM EDT us Umberto Hamm MD, MPH LAB BLOOD ORDERABLES Fin al Result [facility] [address] [place] [address] * Mumps antibody, IgG (04/29/2025 1:36 PM EDT) MUMPS IGG AB Positive Positive [facility] Blood (Blood) 04/29/2025 1:3 6 PM EDT 04/29/2025 1:43 PM EDT Umberto Hamm MD, MPH NON CULTURE MICROBIOLOGY Final Result Performing Organization Address [facility]/ZIP Co de Phone Number [address] [address] * Rubella antibody, IgG (04/29/2025 1:36 PM EDT) Rubella Ab, IgG Positive Positive [facility] Blood (Blood) 04/29/2025 1:3 6 PM EDT 04/29/2025 1:43 PM EDT Umberto Hamm MD, MPH NON CULTURE MICROBIOLOGY Final Result Performing Organization Address [facility]UST Co de Phone Number [address] [address] * Varicella-zoster (VZV) antibody, IgG (04/29/2025 1:36 PM EDT) Varicella Ab(s) Positive Positive [facility] Blood (Blood) 04/29/2025 1:3 6 PM EDT 04/29/2025 1:43 PM EDT Umberto Hamm MD, MPH NON CULTURE MICROBIOLOGY Final Result Performing Organization Address [facility]/ZIP Co de Phone Number [address] [address] * (ABNORMAL) Measles antibody, IgG (04/29/2025 1:36 PM EDT) RUBEOLA IGG Negative(A ) Positive [facility] Blood (Blood) 04/29/2025 1:3 6 PM EDT 04/29/2025 1:43 PM EDT Umberto Hamm MD, MPH NON CULTURE MICROBIOLOGY Final Result Performing Organization Address [facility]/ZIP Co de Phone Number [address] [address] from Last 3 Months Insurance [facility] [employer] [place] [address] [address] [employer] [facility] [employer] Member Subscriber Plan / Payer (Ef fective 2024-Present) Name:Betsey Feliz Relation to Subscriber:Self Name:Betsey Feliz Payer ID:[id number] Group ID:[id number] Type:Medicaid Address: [place] [id number] [place] [address] [place] [address] [place] [address] [employer] Care Teams Adoption Agent Relationship Specialty Start Date End Date Pcp, Unknown PCP - General 04/28/25 Additional Source Comments The information contained in this document represents components of the legal health record. It is not the complete legal health record.[facility]
[2025-06-06 14:45] VITALS: BP 126/63; PULSE 72; RESP 18; TEMP 36.6; O2SAT 98
== END 2025-06-06 14:46 | disposition home or self-care (01) ==
PROVIDERS: Emergency Provider Emergency Medicine
DX: L03.012 Cellulitis of left finger (principal); B02.8 Zoster with other complications
CPT/HCPCS: 99282; 99283

== ENCOUNTER 2025-08-29 15:07 | Emergency (ER) | payer OTHER, SELFPAY ==
--- NOTE | ~2025-08-29 | XR_ITS ---
CLINICAL HISTORY: pain cponstipation? 1 view abdomen Comparison: None provided Findings: Right-sided piercing noted with a additional superficial metal opacities. Mild atelectasis of the imaged lungs. No small bowel dilatation of the imaged abdomen. Severe stool burden is present, including in the imaged cecum. Imaged osseous structures are unremarkable for technique. IMPRESSION: 1. No small bowel obstruction. 2. Severe stool burden. This document has been electronically signed by: Elijah Weiss MD on 08/29/2025 21:22:02
[2025-08-29 15:29] VITALS: BP 136/78; PULSE 78; RESP 20; TEMP 36.4; O2SAT 98; BMI 37.6
--- NOTE | 2025-08-29 16:07 | ED_ITS ---
HPI - General Adult General Chief complaint: Abdominal Pain Stated complaint: rectal pain Time Seen by Provider: 08/29/25 20:05 Related Data Previous Rx's ?Medication ?Instructions ?Recorded amoxicillin 500 mg capsule 500 mg PO BID #20 caps 12/01 11/22 doxycycline monohydrate 100 mg 100 mg PO BID #13 caps 05/15/23 capsule ondansetron 4 mg disintegrating 4 mg PO Q8H PRN nausea and 05/15/23 tablet vomiting #20 tabs prednisone 20 mg tablet 20 mg PO DAILY 7 days #7 tab s 06/10/23 cephalexin 500 mg capsule 500 mg PO Q6H 7 days #28 cap s 12/06/23 doxycycline hyclate 100 mg tablet 100 mg PO BID 7 days #14 tabs 12/06/23 naproxen 500 mg tablet 500 mg PO BID PRN pain #14 t abs 06/06/25 valacyclovir 1 gram tablet 1,000 mg PO TID 7 days #21 tabs 06/06/25 Allergies Allergy/AdvReac Type Severity Reaction Status Date / Time No Known Allergies Allergy Verified 08/29/25 15:32 [facility] Past Medical History Medical History No pertinent past medical history Social History Social History Patient Tobacco Use Status: Never used Tobacco Substance Use Type: Marijuana Advance Directives: No Advance Directives Information Provided: No Do you have a plan to hurt others: No Plan Physical Exam ED Vital Signs: Vital Signs - 24 hr 08/29/25 15:29 Temperature 97.5 F Pulse Rate 78 Respiratory Rate 20 Blood Pressure 136/78 Pulse Oximetry 98 Oxygen Delivery Method Room Air BMI result Body Mass Index 37.6 Course Course Course Narrative: Rapid medical examination performed in triage by Lauren Castillo PA-C: Patient is a 19 year old female presenting to the emergency department with bright red rectal bleeding and abdominal cramping. Detailed physical exam and review of systems are deferred to the nurse clinician. Labs ordered. Patient placed back in the waiting room pending room availability and results. Patient left the department without completing treatment. Patient left the department before myself or any of the other emergency department clinicians could explain to or review with the patient; physical exam findings, test results, need or lack there of for additional testing, need or lack there of for a procedure to be performed, need or lack there of for hospital admission / transfer, need or lack there of for prescription medication, treatment options, or a treatment plan. Patient's limited physical exam performed in triage showed a non-toxic individual with appropriate breathing, alert and oriented, and ambulating without assistance. Medical Decision Making Lab Data 08/29/25 16:24 08/29/25 16:24 Labs: Lab Results 08/29/25 08/29/25 Range/Units 16:24 16:37 WBC 7.6 (4.8-10.8) X10*3/uL RBC 4.42 (4.20-5.50) X10*6/uL Hgb 11.7 L (12.0-16.0) g/dl Hct 36.2 L (37.0-47.0) % MCV 81.9 (80.0-98.0) fL MCH 26.5 L (27.0-33.0) pg MCHC 32.3 (31.0-35.0) g/dl RDW 14.6 (11.0-16.0) % Plt Count 227 (160-400) X10*3/uL MPV 12.0 (9.4-12.3) fL Immature Gran % (Auto) 0.3 (0.0-0.4) % Neut % (Auto) 68.9 (45-73) % Lymph % (Auto) 21.2 (20-40) % [place] % (Auto) 7.5 (2-11) % Eos % (Auto) 1.7 (0-4) % Baso % (Auto) 0.4 (0-2) % Lymph # (Auto) 1.6 (1.2-4.9) X10*3/uL [place] # (Auto) 0.6 (0.1-1.2) X10*3/uL Eos # (Auto) 0.1 (0.0-0.4) X10*3/uL Baso # (Auto) 0.0 (0.0-0.2) X10*3/uL Abs Immat Gran (auto) 0.02 (0.00-0.03) X10*3/uL Absolute Neuts (auto) 5.2 (2.0-8.3) x10*3/uL Absolute Nucleated RBC 0.000 (0.0-0.012) X10*3/uL Nucleated RBC % (auto) 0.0 (0.0-0.2) /100WBC Sodium 141 (135-145) mmol/L Potassium 3.7 (3.3-5.1) mmol/L Chloride 109 H (96-108) mmol/L Carbon Dioxide 24 (22-29) mmol/L Anion Gap 12 (12-20) BUN 17 H (9-16) mg/dL Creatinine 0.65 (0.5-1.4) mg/dL Estim Creat Clear Calc 156.9 Estimated GFR > 60 Random Glucose 86 (60-115) mg/dL Calcium 9.4 (8.4-10.2) mg/dL Total Bilirubin 0.3 (0.0-1.0) mg/dL Direct Bilirubin 0.2 (0.0-0.5) mg/dL AST 16 (5-31) U/L ALT 20 (0-31) U/L Alkaline Phosphatase 84 (39-117) U/L Total Protein 7.4 (6.5-8.0) g/dL Albumin 4.6 (3.5-5.0) g/dL Lipase 19 (8-78) U/L Beta HCG, Quant < 2 mIU/mL Urine Color Yellow Urine Appearance Clear Urine pH 6.5 (5.0-9.0) Ur Specific [place] 1.025 (1.005-1.025) Urine Protein Negative (Neg-Trace) mg/dL Urine Glucose (UA) Negative (Negative) mg/dL Urine Ketones Trace (Negative) mg/dL Urine Blood Negative (Negative) Urine Nitrite Negative (Negative) Ur Leukocyte Esterase Negative (Negative) Discharge Plan Discharge Clinical Impression: Rectal bleeding Patient Disposition: Left W/O Completing Treatment Prescriptions: No Action amoxicillin 500 mg capsule 500 mg PO BID Qty: 20 0RF doxycycline monohydrate 100 mg capsule 100 mg PO BID Qty: 13 0RF ondansetron 4 mg tablet,disintegrating 4 mg PO Q8H PRN (Reason: nausea and vomiting) Qty: 20 0RF prednisone 20 mg tablet 20 mg PO DAILY 7 Days Qty: 7 0RF cephalexin 500 mg capsule 500 mg PO Q6H 7 Days Qty: 28 0RF doxycycline hyclate 100 mg tablet 100 mg PO BID 7 Days Qty: 14 0RF valacyclovir 1 gram tablet 1,000 mg PO TID 7 Days Qty: 21 0RF naproxen 500 mg tablet 500 mg PO BID PRN (Reason: pain) Qty: 14 0RF Discharge Date/Time: 08/29/25 21:12
--- OUTSIDE RECORDS SUMMARY | 2025-08-29 16:33 | XMS_ITS | Encounter Summary ---
Author Organization [facility] Address [address] [place], [place] [address] Phone Care Team Providers Care Jinriksha Driver Name Role Phone Ashli Shen MD Primary Care Provider [phone] Encounter Details Date Type Department Care Team (Late st Contact Info) Description 12/17/2016 Documentation [facility] Family Medicine [address] [place] [address] Family Medicine, Physician [address], [place] [address] Social History Tobacco Use Types Packs/Day Years [...] on filedocumented in this encounter Care Teams Jinriksha Driver Relationship Specialty Start Date End Date Ashli Shen MD [address] [place] [address] PCP - General Pediatrics 05/04/22 11/12/24 documented as of this encounter
--- OUTSIDE RECORDS SUMMARY | 2025-08-29 16:33 | XMS_ITS | Encounter Summary ---
Author Organization [facility] Address [address] [place], [place] [phone] Phone Care Team Providers Care Executive Secretary Social Welfare Name Role Phone Ashli Shen MD Primary Care Provider [phone] Encounter Details Date Type Department Care Team (Late st Contact Info) Description 10/15/2016 Documentation [facility] Family Medicine [address] [place], [place] [phone] Family Medicine, Physician [address], [place] [phone] Social History Tobacco Use Types Packs/Day Years [...] on filedocumented in this encounter Care Teams Executive Secretary Social Welfare Relationship Specialty Start Date End Date Ashli Shen MD [address] [place] [phone] PCP - General Pediatrics 05/04/22 11/12/24 documented as of this encounter
--- OUTSIDE RECORDS SUMMARY | 2025-08-29 16:33 | XMS_ITS | Encounter Summary ---
Author Organization [facility] Address [address] [place], [place] [phone] Phone Care Team Providers Care Car Changer Name Role Phone Ahsli Shen MD Primary Care Provider [phone] Encounter Details Date Type Department Care Team (Late st Contact Info) Description 11/07/2009 Documentation [facility] Family Medicine [address] [place], [place] [phone] Family Medicine, Physician [address], [place] [phone] Social History Tobacco Use Types Packs/Day Years [...] on filedocumented in this encounter Care Teams Car Changer Relationship Specialty Start Date End Date Ashli Shen MD [address] [place] [address] PCP - General Pediatrics 05/04/22 11/12/24 documented as of this encounter
--- OUTSIDE RECORDS SUMMARY | 2025-08-29 16:33 | XMS_ITS | Encounter Summary ---
Author Organization [facility] Address [address] [place] [address] Phone Care Team Providers Care Bottle Feeder Name Role Phone Ashli Shen MD Primary Care Provider [phone] Encounter Details Date Type Department Care Team (Late st Contact Info) Description 04/18/2017 Conversion Encounter [place] [facility] [address] [place] [address] Social History Tobacco Use Types Packs/Day Years [...] on filedocumented in this encounter Care Teams Bottle Feeder Relationship Specialty Start Date End Date Ashli Shen MD [address] [place] [address] PCP - General Pediatrics 05/04/22 11/12/24 documented as of this encounter
--- OUTSIDE RECORDS SUMMARY | 2025-08-29 16:33 | XMS_ITS | Encounter Summary ---
Author Organization [facility] Address [address] [place], [place] [address] Phone Care Team Providers Care Chemist Organic Name Role Phone Ashli Shen MD Primary Care Provider [phone] Encounter Details Date Type Department Care Team (Late st Contact Info) Description 07/31/2010 Documentation [facility] Family Medicine [address] [place], [place] [phone] Family Medicine, Physician [address], [place] [phone] Social History Tobacco Use Types Packs/Day Years [...] on filedocumented in this encounter Care Teams Chemist Organic Relationship Specialty Start Date End Date Ashli Shen MD [address] [place] [address] PCP - General Pediatrics 05/04/22 11/12/24 documented as of this encounter
--- OUTSIDE RECORDS SUMMARY | 2025-08-29 16:33 | XMS_ITS | Encounter Summary ---
Author Organization [facility] Address [address] [place], [place] [address] Phone Care Team Providers Care Vocational Placement Specialist Name Role Phone Ashli Shen MD Primary Care Provider [phone] Encounter Details Date Type Department Care Team (Late st Contact Info) Description 10/03/2016 Documentation [facility] [place] Medicine [address] [place] [address] Family Medicine, Physician [address], [place] [phone] Social History Tobacco Use Types Packs/Day Years [...] on filedocumented in this encounter Care Teams Vocational Placement Specialist Relationship Specialty Start Date End Date Ashli Shen MD [address] [place] [address] PCP - General Pediatrics 05/04/22 11/12/24 documented as of this encounter
--- OUTSIDE RECORDS SUMMARY | 2025-08-29 16:33 | XMS_ITS | Clinical Summary ---
Author Organization [facility] Address [address] [address] Phone Care Team Providers Care Bond Writer Name Role Phone Pcp, Unknown Primary Care Provider Unavailabl e Immunizations Immunization Administration Dates Next Due Hepatitis B Adult 05/07/2025 INFLUENZA, SPLIT VIRUS, TRIVALENT PF 06/15/2025 MMR 08/06/2025,05/07/2025 Tdap 02/08/2015 Social History Tobacco Use Types [...] DEPRESSION SCREENING 2015 SMOKING Hx and SMOKELESS TOBACCO SCREENING 2016 HPV VACCINES (1 - 3-dose series) 2018 CHLAMYDIA SCREENING 2019 MENINGOCOCCAL VACCINES (B) ( 1 of 2 - Standard) 2019 ADOLESCENT UNIVERSAL LIPID SCREENING 2020 HEPATITIS C SCREENING 2021 HIV ONE-TIME SCREENING (18-6 5 YEARS) 2021 PAP SMEAR 2024 Adult Td,Tdap Booster 02/08/2025 02/08/2015 COVID-19 VACCINE (1 - 2024-2 6 season) 2025 INFLUENZA VACCINE (#1) 2025 06/15/2025 MMR VACCINES Completed 08/06/2025, 05/07/2025 HEPATITIS A VACCINES Aged Out No long er eligible based on patient's age to complete this topic HIB VACCINES Aged Out No longer eligi ble based on patient's age to complete this topic MENINGOCOCCAL VACCINES (ACWY) Aged Out No longer eligible based on patient's age to complete this topic PNEUMOCOCCAL VACCINES (0-49 years) Aged Out No longer eligible b ased on patient's age to complete this topic Medical Devices Not on file Insurance [employer] [place] [employer] [place] [address] [address] [place] [address] [address] [address] [address] [address] [place] [address] [employer] [place] [id number] Care Teams Bond Writer Relationship Specialty Start Date End Date Pcp, Unknown PCP - General 04/28/25 Additional Source Comments The information contained in this document represents components of the legal health record. It is not the complete legal health record.[facility]
--- OUTSIDE RECORDS SUMMARY | 2025-08-29 16:33 | XMS_ITS | Encounter Summary ---
Author Organization [facility] Address [address] [place], [place] [phone] Phone Care Team Providers Care Flying Shear Operator Name Role Phone Ashli Shen MD Primary Care Provider [phone] Encounter Details Date Type Department Care Team (Late st Contact Info) Description 04/03/2011 Documentation [facility] Family Medicine [address] [place], [place] [phone] Family Medicine, Physician [address], [place] [phone] Social History Tobacco Use Types Packs/Day Years [...] on filedocumented in this encounter Care Teams Flying Shear Operator Relationship Specialty Start Date End Date Ashli Shen MD [address] [place] [address] PCP - General Pediatrics 05/04/22 11/12/24 documented as of this encounter
--- OUTSIDE RECORDS SUMMARY | 2025-08-29 16:33 | XMS_ITS | Clinical Summary ---
Author Organization [facility] Address [address] [place] [address] Phone Care Team Providers Care General Internal Medicine Physician Name Role Phone Unavailable Primary Care Provider [...] on current Ritalin LA 40mg dosing - [place] from mom reviewed today - stressed that [...] Completed 01/17/2021, 015 Procedures * Due to [facility] law, this organization might not be sharing sensitive test results. Procedure Name Priority Date/Time Associated Diagnosis Comments CHLAMYDIA AND GONORRHEA, AMPLIFIED Routine 05/03/2022 5:02 PM EDT Encounter for screening examination for chlamydial infection from Last 3 Months or Most Recently Relevant to Health Maintenance Results * Due to [place] [employer] law, this organization might not be sharing sensitive test results. * (ABNORMAL) Chlamydia and Gonorrhea, Amplified (05/03/2022 5:02 PM EDT) Chlamydia Trachomatis, DNA Probe NEGATIVE (NEG) [facility] Comment: No Chlamydia Trachomatis RNA detected in this patient's sample (REFERENCE RANGE/NORMAL VALUE: NOT DETECTED) Note: This test uses waste salvager- mediated amplification method to detect rRNA from C. Trachomatis URINE GC AMP PROBE POSITIVE(A) (NEG) [facility] Comment: Neisseria Gonorrhoeae RNA detected in this patient's sample (REFERENCE RANGE/NORMAL VALUE: NOT DETECTED) Result reported to the [facility]. NOTE: This test uses waste salvager-mediated amplification method to detect rRNA from N.Gonorrhoeae. [...] without risk of sexual abuse. Consult the [facility] if needed. Contact phone number . Therapeutic failure or success cannot be determined with the Aptima Combo2 assay since nucleic acid may persist following appropriate antimicrobial therapy. The Centers for Disease Control and Prevention (CDC) recommends confirmatory retesting using culture or a different nucleic acid amplification test when positive results occur, if indicated. Testing performed or reported by [facility], a Service of [facility], [facility] [place] [address] Wilner Sandhu MD, Button Spindler [facility]# [id number] Urine (Urine) 05/03/2022 5:0 2 PM EDT 05/04/2022 1:50 AM EDT us Lila Costa MD LAB MICROBIOLOGY - GENERAL OR DERABLES Final Result [facility] from Last 3 Months or Most Recently Relevant to Health Maintenance
[2025-08-29 16:43] LABS: MANUAL DIFF FLAG NO
[2025-08-29 16:44] LABS: Appearance Urine Clear; Glucose Urine UA Negative (Negative); PH 6.5 (5.0-9.0); Specific Gravity - Urine 1.025 (1.005-1.025)
[2025-08-29 16:50] LABS: Hematocrit 36.2 % (37.0-47.0); Hemoglobin 11.7 g/dl (12.0-16.0); Imm Gran Abs Auto 0.02 X10*3/uL (0.00-0.03); Imm Gran Pct Auto 0.3 % (0.0-0.4); Lymphocytes Absolute Auto 1.6 X10*3/uL (1.2-4.9); Mean Corpuscular HGB Conc 32.3 g/dl (31.0-35.0); Mean Corpuscular Hemoglobin 26.5 pg (27.0-33.0); Mean Corpuscular Volume 81.9 fL (80.0-98.0); NRBC Abs Auto 0.000 X10*3/uL (0.0-0.012); NRBC Pct Auto 0.0 /100WBC (0.0-0.2); Platelet Count 227 X10*3/uL (160-400); Red Blood Count 4.42 X10*6/uL (4.20-5.50); White Blood Count 7.6 X10*3/uL (4.8-10.8)
[2025-08-29 16:57] LABS: Alanine Aminotransferase 20 U/L (0-31); Albumin Level 4.6 g/dL (3.5-5.0); Alkaline Phosphatase 84 U/L (39-117); Anion Gap 12 (12-20); Aspartate Amino Transferase 16 U/L (5-31); Blood Urea Nitrogen 17 mg/dL (9-16); Calcium 9.4 mg/dL (8.4-10.2); Carbon Dioxide 24 mmol/L (22-29); Chloride 109 mmol/L (96-108); Creatinine Clr Calc Pharmacy 156.9; Estimated Glomerular Filt Rate > 60; Lipase 19 U/L (8-78); Potassium 3.7 mmol/L (3.3-5.1); Sodium 141 mmol/L (135-145); Total Protein 7.4 g/dL (6.5-8.0)
== END 2025-08-29 21:12 | disposition left against medical advice (07) ==
PROVIDERS: Physician Assistant Medical; Emergency Provider Emergency Medicine
DX: K62.5 Hemorrhage of anus and rectum (principal); K62.89 Other specified diseases of anus and rectum; Z53.29 Procedure and treatment not carried out because of patient's decision for other reasons; R10.9 Unspecified abdominal pain; K59.00 Constipation, unspecified
CPT/HCPCS: 36415; 74018; 80048; 80076; 81003; 83690; 84702; 85025; 99282; 99283

== ENCOUNTER → 2025-08-29 20:05 | Outpatient (BNV) | payer OTHER, SELFPAY | PROVIDERS: Emergency Provider Emergency Medicine; Visit Provider Radiology Neuroradiology | DX: R10.9 Unspecified abdominal pain (principal) | CPT/HCPCS: 74018 ==